=== PATIENT | male | born 1980 | race Caucasian/White ===

== ENCOUNTER 2023-05-18 21:49 | Emergency (ER) | payer BC, SELFPAY ==
--- NOTE | ~2023-05-18 | XR_ITS ---
EXAM: XR hand LT min 3V DATE: 05/18/2023 22:30 HISTORY: pain, smashed in car hauler . COMPARISON: None available. FINDINGS: Normal mineralization. No fracture or dislocation. No lytic or blastic lesion. Joint space s are maintained. No erosion or periosteal change. Soft tissues within normal limits. IMPRESSION: No acute osseous finding in the left hand. Reviewed, dictated and finalized at location [facility].
[2023-05-18 21:51] VITALS: BP 119/77; PULSE 52; RESP 15; TEMP 35.8; O2SAT 100
--- NOTE | 2023-05-19 00:51 | ED.UPPEXIN ---
HPI - Extremity Injury (Upper) General Chief Complaint: Extremity Injury, Upper <LISANDRO Enrique Last Filed: 05/19/23 01:54> Stated Complaint: crushed hand under car hauler <LISANDRO Enrique Last Filed: 05/19/23 01:54> Time Seen by Provider: 05/19/23 00:45 <LISANDRO Enrique Last Filed: 05/19/23 01:54> History of Present Illness HPI narrative: 42-year-old male reports for evaluation for pain to the dorsum of his left hand after an injury that occurred prior to arrival. Patient states he smashed his hand in a [place] trailer. He has 2 superficial lacerations to the dorsum of his left hand and 1 laceration with a small amount of subcutaneous tissue showing. Bleeding is controlled. He is on a blood thinners. Last tetanus vaccine was 2 years ago. Reports numbness to the dorsum of his hand surrounding the lacerations but denies paresthesias to the remainder of his hand or extremities. Denies other injury. Denies limitation in range of motion of wrist or fingers. <LISANDRO Enrique Last Filed: 05/19/23 01:54> Related Data Allergies/Adverse Reactions: Allergies Allergy/AdvReac Type Severity Reaction Status Date / Time No Known Allergies Allergy Verified 05/18/23 21:50 <LISANDRO Enrique Last Filed: 05/19/23 01:54> Review of Systems Review of Systems: CONSTITUTIONAL: Denies fever, chills EYES: Denies visual changes, redness, or discharge. ENT: Denies rhinorrhea, congestion, sore throat, or otalgia. CARDIOVASCULAR: Denies chest pain, palpitations, or edema. RESPIRATORY: Denies cough or dyspnea. GASTROINTESTINAL: Denies abdominal pain, nausea, vomiting, or diarrhea. GENITOURINARY: Denies dysuria or hematuria. SKIN: See HPI MUSCULOSKELETAL: See HPI NEUROLOGIC: Denies headache, numbness, dizziness, or weakness. PSYCHIATRIC: Denies anxiety or depression. <LISANDRO Enrique Last Filed: 05/19/23 01:54> Exam Narrative: GENERAL: Well-appearing, in no acute distress. Patient resting comfortably in exam chair. He is pleasant and conversational. HEAD: Normocephalic NECK: Supple. CHEST: No respiratory distress. Clear to auscultation, no adventitious breath sounds. HEART: Regular rate and rhythm. No murmur heard. Normal peripheral pulses. EXTREMITIES: Tenderness and edema overlying the dorsum of the third and fourth metatarsals of the left hand. No tenderness to remainder of wrist, hand or fingers. Full range of motion of wrist and fingers. Radial pulse 2+. Cap refill less than 2. Sensation intact throughout. SKIN: 3 linear lacerations to the dorsum of the the left hand measuring 0.5 cm, 1cm, and 1cm. 2 of the lacerations or superficial and well approximated. One of the 1cm lacerations is well approximated but slightly deeper showing subcutaneous tissue. Bleeding controlled in all lacerations. No foreign bodies or deep structures visualized. NEURO: No focal deficits. Alert and oriented x3. PSYCH: Normal mood and affect. <Sharri Campos PA-C - Last Filed: 05/19/23 01:54> Course ENDORSEMENT CLERK/PA Physician Supervision This is a was performed by both a physician and an APC. I performed all aspects of the MDM as documented w/ the following additions: 42-year-old male presenting with injury to his hand. X-rays were negative for fracture. Lacerations repaired. Patient discharged with return precautions.All questions answered. Patient in agreement w/ disposition. <Mat Calhoun MD - Last Filed: 05/19/23 06:39> Vital Signs Vital signs: Vital Signs Temperature 96.4 F L 05/18/23 21:51 Pulse Rate 52 L 05/18/23 21:51 Respiratory Rate 15 05/18/23 21:51 Blood Pressure 119/77 05/18/23 21:51 Pulse Oximetry 100 05/18/23 21:51 Oxygen Delivery Room Air 05/18/23 21:51 Temperature 96.4 F L 05/18/23 21:51 Pulse Rate 70 05/19/23 01:59 Respiratory Rate 14 05/19/23 01:59 Blood Pressure 119/77 05/18/23 21:51 Pulse
[2023-05-19 01:59] VITALS: PULSE 70; RESP 14; O2SAT 100
== END 2023-05-19 01:59 | disposition home or self-care (01) ==
PROVIDERS: Emergency Provider Physician Assistant; PCP Student in an Organized Health Care Education/Training Program
DX: S61.412A Laceration without foreign body of left hand, initial encounter (principal); S60.222A Contusion of left hand, initial encounter; W23.0XXA Caught, crushed, jammed, or pinched between moving objects, initial encounter
CPT/HCPCS: 12001; 73130; 99283